=== PATIENT | female | born 1945 | race Caucasian/White ===

== ENCOUNTER 2016-10-09 14:44 | Emergency (ER) | payer OTHER ==
[~2016-10-09] VITALS: Ht 167.6 cm; Wt 85.0 kg
[~2016-10-09 14:44] MED LIST: ALLOPURINOL300 MG PO; BIOTENE1000 ML MM; BIOTIN 5000MCG PO; CEFTIN500 MG PO; DAILY VITAMIN1 EAC4 PO; FENTANYL1 EAC4 TD; FIORICET 50-301 EACH PO; KEFLEX500 MG PO; LISINOPRIL20 MG PO; METFORMIN HCL1000 MG PO; NEOSPORIN ANT70.8 GM TP; NORTRIPTYLINE H25 MG PO; PERCOCET 5/31 TABLET PO; TOPIRAMATE50 MG PO; VERAPAMIL HCL240 MG PO; XARELTO20 MG PO; ZOFRAN4 MG PO
[2016-10-09 15:16] LABS: HEMATOCRIT 34.1 % (36.0-46.0); MCH 27.2 PG (29.0-34.0); MCHC 32.3 G/DL (30.0-36.0); MCV 84.2 FL (83-99); MEAN PLAT.VOLUME 9.4 uM^3 (9.5-12.4); PLATELET COUNT 230 K/uL (156-360); RBC DIS.WIDTH-CV 14.1 % (11.8-14.6); RED BLOOD COUNT 4.05 M/uL (3.80-5.20); WHITE BLOOD COUNT 11.5 K/uL (4.1-10.2)
[2016-10-09 15:24] LABS: CHLORIDE 115 mEq/L (99-109); POTASSIUM 4.2 mEq/L (3.7-5.4); SODIUM 144 mEq/L (136-147)
[2016-10-09 15:25] LABS: GLUCOSE 241 mg/dL (70-99)
[2016-10-09 15:27] LABS: ANION GAP 12 MEQ/L (2-14)
[2016-10-09 15:29] LABS: GFR ESTIMATE (CALCULATED) 43 mL/min/
[2016-10-09 15:30] LABS: UREA NITROGEN (BUN) 37 mg/dL (9-23)
[2016-10-09 15:36] LABS: TROP-I INTERPRETATION NEGATIVE; TROPONIN-I < 0.01 ng/mL (0.0-0.30)
[2016-10-09] MEDS ORDERED: PROAIR HFA8.5 GM IH (18:10)
[2016-10-09] MEDS ORDERED: AZITHROMYCIN250 MG PO (18:11)
[2016-10-09] MEDS ORDERED: PREDNISONE50 MG PO (18:11)
[2016-10-09] MEDS ORDERED: LISINOPRIL20 MG PO ×2 (18:18→18:19)
[2016-10-09] MEDS ORDERED: OMEPRAZOLE40 M1 PO (18:20)
[2016-10-09] MEDS ORDERED: METFORMIN HCL1000 MG PO (18:20)
[2016-10-09] MEDS ORDERED: CARBIDOPA-LEVO1 EAC7 PO (18:21)
[2016-10-09] MEDS ORDERED: SERTRALINE HCL100 MG PO (18:21)
[2016-10-09] MEDS ORDERED: TOPIRAMATE50 MG PO (18:22)
[2016-10-09] MEDS ORDERED: VERAPAMIL HCL240 MG PO ×2 (18:22→18:23)
[2016-10-09] MEDS ORDERED: VITAMIN D5000 UNI1 PO (18:23)
[2016-10-09] MEDS ORDERED: ZOFRAN4 MG PO (18:24)
[2016-10-09 19:25] LABS: ADD MIUA? YES; BILIRUBIN NEGATIVE; BLOOD NEGATIVE; COLOR YELLOW ((YELLOW)); GLUCOSE (STRIP) NEGATIVE; KETONES NEGATIVE; LEUKOCYTES SMALL; NITRITE NEGATIVE; PH, URINE 5.5 (5-8); PROTEIN (STRIP) NEGATIVE; SPECIFIC GRAVITY 1.025 (1.000-1.030); UROBILINOGEN 0.2 MG/DL (0.2-1.0)
[2016-10-09] MEDS ORDERED: TESSALON PERLE100 MG PO (19:28)
[2016-10-09 19:34] LABS: BACTERIA NONE SEEN; CASTS NONE SEEN /LPF; CRYSTALS NONE SEEN; EPITHELIAL CELLS RARE; MUCUS NONE SEEN; PATHOLOGICAL CAST NONE SEEN; RED BLOOD CELLS 0-5 /HPF (0-5); SMALL ROUND CELL NONE SEEN; UCUL ADDED? NO; WHITE BLOOD CELLS 0-5 /HPF (0-5); YEAST-LIKE CELL NONE SEEN
[2016-10-09] MEDS ORDERED: NAPROSYN500 MG PO (19:37)
[2016-10-09 20:21] VITALS: BP 137/56
== END 2016-10-09 20:27 | disposition home or self-care (01) ==
LOC: EME 14:44
PROVIDERS: Emergency Medicine
DX: J20.9 Acute bronchitis, unspecified (principal); S29.012A Strain of muscle and tendon of back wall of thorax, initial encounter; B34.9 Viral infection, unspecified; E11.9 Type 2 diabetes mellitus without complications; M79.7 Fibromyalgia; I10 Essential (primary) hypertension; Z87.442 Personal history of urinary calculi; Z87.891 Personal history of nicotine dependence
CPT/HCPCS: 71020; 80048; 81003; 82009; 84484; 85027; 93005; 94640; 99281; 99284

== ENCOUNTER 2017-02-06 16:25 | Emergency (ER) | payer OTHER ==
[~2017-02-06] VITALS: Ht 167.6 cm; Wt 81.4 kg
[~2017-02-06 16:25] MED LIST changes: +AZITHROMYCIN250 MG PO; +CARBIDOPA-LEVO1 EAC7 PO; +NAPROSYN500 MG PO; +OMEPRAZOLE40 M1 PO; +PREDNISONE50 MG PO; +PROAIR HFA8.5 GM IH; +SERTRALINE HCL100 MG PO; +TESSALON PERLE100 MG PO; +VITAMIN D5000 UNI1 PO
[2017-02-06 17:34] LABS: HEMATOCRIT 33.7 % (36.0-46.0); MCH 27.1 PG (29.0-34.0); MCHC 31.2 G/DL (30.0-36.0); MCV 86.9 FL (83-99); MEAN PLAT.VOLUME 10.1 uM^3 (9.5-12.4); PLATELET COUNT 217 K/uL (156-360); RBC DIS.WIDTH-CV 14.6 % (11.8-14.6); RBC DIS.WIDTH-SD 46.8 % (39-53); RED BLOOD COUNT 3.88 M/uL (3.80-5.20); WHITE BLOOD COUNT 6.6 K/uL (4.1-10.2)
[2017-02-06 17:42] LABS: CHLORIDE 114 mEq/L (99-109); POTASSIUM 4.6 mEq/L (3.7-5.4); SODIUM 143 mEq/L (136-147)
[2017-02-06 17:43] LABS: GLUCOSE 223 mg/dL (70-99)
[2017-02-06 17:45] LABS: ANION GAP 12 MEQ/L (2-14)
[2017-02-06 17:47] LABS: GFR ESTIMATE (CALCULATED) 47 mL/min/
[2017-02-06 17:48] LABS: UREA NITROGEN (BUN) 31 mg/dL (9-23)
[2017-02-06 17:50] LABS: D-DIMER ELISA 0.21 mg/L FEU (< 0.57); INTER. NORMALIZED RATIO 1.1; PROTHROMBIN TIME 10.9 (9.2-11.2); PTT 26.8 (25-32)
[2017-02-06 17:55] LABS: TROP-I INTERPRETATION NEGATIVE; TROPONIN-I < 0.01 ng/mL (0.0-0.30)
[2017-02-06 20:10] LABS: ADD MIUA? YES; BILIRUBIN NEGATIVE; BLOOD NEGATIVE; COLOR YELLOW ((YELLOW)); GLUCOSE (STRIP) NEGATIVE; KETONES 5; LEUKOCYTES TRACE; NITRITE NEGATIVE; PROTEIN (STRIP) NEGATIVE; SPECIFIC GRAVITY 1.019 (1.000-1.030); UROBILINOGEN 0.2 MG/DL (0.2-1.0)
[2017-02-06 20:11] LABS: BACTERIA NONE SEEN /HPF; EPITHELIAL CELLS RARE /HPF; MUCUS TRACE /LPF; RED BLOOD CELLS 0-5 /HPF (0-5); UCUL ADDED? NO; WHITE BLOOD CELLS 0-5 /HPF (0-5)
[2017-02-06 21:18] LABS: TROP-I INTERPRETATION NEGATIVE; TROPONIN-I 0.01 ng/mL (0.0-0.30)
[2017-02-06 21:59] VITALS: BP 125/62
== END 2017-02-06 22:00 | disposition home or self-care (01) ==
LOC: EME 16:25
PROVIDERS: Emergency Medicine
DX: R55 Syncope and collapse (principal); E11.65 Type 2 diabetes mellitus with hyperglycemia; D64.9 Anemia, unspecified; I10 Essential (primary) hypertension; M79.7 Fibromyalgia; Z87.442 Personal history of urinary calculi; Z87.891 Personal history of nicotine dependence
CPT/HCPCS: 80048; 81003; 84484; 85027; 85379; 85610; 85730; 93005; 99281; 99284; J7030